=== PATIENT | female | born 1945 | race Caucasian/White ===

== ENCOUNTER → 2019-11-10 10:33 | Outpatient (CLI) | payer MEDICARE, OTHER, SELFPAY ==
--- NOTE | ~2019-11-10 | CT_ITS ---
EXAMINATION: CT chest abdomen pelvis w con EXAM DATE: 11/10/2019 11:07 INDICATION: Follicular lymphoma. Right upper lobectomy. Left kidney ablation. TECHNIQUE: Spiral CT of the chest, abdomen and pelvis was performed following intravenous injection o f 100 mL Omnipaque 350. Axial, coronal and sagittal images were reviewed. Coronal maximum intensity pixel images of chest reviewed. The dose-length product (DLP) for this examination was 722.16 mGy-c m. The exposure was tailored according to patient size (auto mA exposure control), and iterative rec onstruction (ASIR) was used as additional dose reduction technique. There is no prior study for jordon meneses. FINDINGS: CHEST: Right upper lobectomy. No central pulmonary emboli. There are no pleural or pericardial effus ions. Tracheobronchial tree is patent. There is no mediastinal, hilar or axillary lymphadenopathy . There is no pneumothorax. Heart normal in size. There is mild coronary arterial calcification , arterial sclerosis. ABDOMEN PELVIS: The liver, spleen, adrenal glands and pancreas are unremarkable. There are gallstone s within an otherwise unremarkable gallbladder. No evidence of obstructive biliary disease. Portal and splenic veins are patent. Kidneys enhance symmetrically. There is no hydronephrosis. Scarring p osterior cortex of the left kidney. The uterus is not identified and has likely been surgically rese cted. The bladder is unremarkable. There is no retroperitoneal or pelvic lymphadenopathy. There i s mild scattered arteriosclerotic disease. The appendix is not positively visualized. There is no pericecal inflammatory change to suggest appe ndicitis. There is small sliding gastroesophageal hiatal hernia. There is moderate amount of colon ic stool. No free intraperitoneal gas. There are no osteoblastic or osteolytic lesions identified . IMPRESSION: 1. No chest abdomen or pelvis lymphadenopathy. 2. Surgical changes. 3. Small hiatal hernia. 4. Cholelithiasis. Reviewed, dictated and finalized at location B.
[2019-11-10 10:56] LABS: Estimated Glomerular Filt Rate > 60
== END ==
PROVIDERS: Visit Provider Internal Medicine Medical Oncology
DX: C82.18 Follicular lymphoma grade II, lymph nodes of multiple sites (principal); K44.9 Diaphragmatic hernia without obstruction or gangrene; K80.20 Calculus of gallbladder without cholecystitis without obstruction
CPT/HCPCS: 36415; 71260; 74177; Q9967

== ENCOUNTER 2020-03-11 01:09 | Outpatient (CLI) | payer MEDICARE, OTHER, SELFPAY ==
[2020-03-11 18:41] LABS: SARS-CoV-2 RNA PCR Negative
== END 2020-03-11 01:10 | disposition home or self-care (01) ==
LOC: ANHCOVIDDT 01:10
PROVIDERS: PCP Family Medicine; Visit Provider Internal Medicine Gastroenterology
DX: Z01.812 Encounter for preprocedural laboratory examination (principal); Z11.59 Encounter for screening for other viral diseases
CPT/HCPCS: 87635; C9803; U0003

== ENCOUNTER 2020-03-13 03:03 | Day surgery (SDC) | payer MEDICARE, OTHER, SELFPAY ==
[2020-03-06 14:57] VITALS: BMI 25.4
--- NOTE | 2020-03-13 09:58 | WPDGICN ---
Assessment and Plan Assessment and plan (1) Abdominal pain: Code(s): R10.9 - Unspecified abdominal pain Status: Acute Assessment and Plan: Patient with ongoing abdominal pain. Etiology is unclear. Patient is quite concerned because of her history of lymphoma. differential diagnosis is quite broad but also includes irritable bowel syndrome. Plan is for high-fiber diet. Colonoscopy will be performed to evaluate more thoroughly. (2) Cholelithiasis: Code(s): K80.20 - Calculus of gallbladder without cholecystitis without obstruction Status: Acute Assessment and Plan: Gallstones identified by CT scan do not appear to be etiology of her ongoing pain. Plan is to monitor conservatively at this time. If pain persists consider surgical evaluation. (3) Non-Hodgkin lymphoma in remission: Code(s): C85.90 - Non-Hodgkin lymphoma, unspecified, unspecified site Status: Acute Assessment and Plan: patient continues to be followed by Dr. Garza, of Oncology , appreciate his ongoing guidance. GI Consult Note Consult date/time: 03/13/20 09:58 HPI: Shikha Godinez is a 74 year old female seen in evaluation at the request of Dr Martin and Dr Garza. Patient reports ongoing abdominal discomfort. She notices discomfort diffusely that is improved when she lies down but worsens when she walks around. She does occasionally notice left lower quadrant discomfort that is cramping. The symptoms have been present for the last several months. She denies any bleeding. She denies any fever. Her weight appetite are all normal. She does have a past medical history of stage IV follicular lymphoma. This was located throughout her abdomen. In the lung for which she had surgery and in her left axilla. Patient had a CT scan of the abdomen in September under the direction of Dr. kamlesh crook with no evidence of active disease. She does is known to have asymptomatic gallstones. Review of Systems Review of Systems: All systems reviewed & are unremarkable except as noted in HPI and below PMFSH Past Medical History Medical History Arthritis due to other bacteria, left ankle and foot Benign essential HTN Bunion of left foot Cancer NON-HODGKINS, RT LUNG CA Cholelithiasis Encounter for orthopedic follow-up care (08/03/19) FHx: CORINE-BSO (total abdominal hysterectomy and bilateral salpingo-oophorectomy) Foot osteomyelitis, left HH (hiatus hernia) Hypercholesterolemia Mixed hyperlipidemia Non-Hodgkin lymphoma in remission Osteoporosis Osteoporosis without current pathological fracture Renal cyst Renal mass, left Vitamin D deficiency, unspecified Surgical History Surgical History H/O: hemorrhoidectomy History of appendectomy Hx of LASIK S/P pneumonectomy RUL resection S/P CORINE-BSO (total abdominal hysterectomy and bilateral salpingo-oophorectomy) Family History Family History Mother Family history of malignant neoplasm Father Patient's father is Acute myocardial infarction Sibling Acute myocardial infarction Other Cerebrovascular accident Diabetes mellitus Family history of allergic disorder Family history of arthritis Family history of cardiovascular disease Family history of hearing loss Family history of obesity Family history of osteoporosis Hypertension Social History Social History (Updated 10/20/19 @ 13:29 by Deidra Murrell) Social History: Smoking status: Never smoker Second hand tobacco smoke exposure: No Alcohol intake: never Substance use: never Substance use type: does not use Gender identity (if verbalized by the patient): Female Sexual Orientation (if Verbalized by the Patient): Straight or Heterosexual Meds Home Medications and A
[2020-03-13] MEDS: LACTATED RINGERS 1,000 ML 150 ML IV CONT (10:04)
[2020-03-13 10:05] VITALS: BP 184/88; PULSE 98; RESP 18; TEMP 36.6; O2SAT 100
--- NOTE | 2020-03-13 10:13 | WPDANESEPPF ---
Anes - Initial Pre Proc Eval Procedure: Operation Date: 03/13/20 10:30 Proposed Procedures p Screening Colonoscopy - Kosta Morales MD Date/Time: 03/13/20 10:13 Surgeon: Kosta Morales MD Pre Op Diagnosis: Neoplasm Screening Patient Data Age: 74 Gender: F Height: 5 ft 3 in Weight: 65 kg Last Vital Signs Temp 98 F 03/13/20 10:05 Pulse 98 03/13/20 10:05 Resp 18 03/13/20 10:05 BP 184/88 H 03/13/20 10:05 Pulse Ox 100 03/13/20 10:05 Allergies Allergy/AdvReac Type Severity Reaction Status Date / Time povidone-iodine Allergy Mild RASH Verified 03/13/20 09:54 grass pollen Allergy Unknown Unknown Verified 03/13/20 09:54 povidone Allergy Unknown Rash Verified 03/13/20 09:54 soap Allergy Unknown Rash Verified 03/13/20 09:54 Home Medications Medication Instructions Recorded Confirmed Type Adult Probiotic 3,000 mmu cells PO DAILY 07/20/19 03/06/20 History Adults Multivitamin 1 tablet PO DAILY 07/20/19 03/06/20 History alendronate [Fosamax] 70 mg PO WEEKLY 07/20/19 03/06/20 History ascorbic acid (vitamin C) [Vitamin 500 mg PO DAILY 07/20/19 03/06/20 History C] lutein 20 mg PO DAILY 07/20/19 03/06/20 History magnesium 250 mg PO DAILY 07/20/19 03/06/20 History multivitamin with minerals 1 tablet PO DAILY 07/20/19 03/13/20 History [Hair,Skin and Nails] pantoprazole [Protonix] 20 mg PO HS 07/20/19 03/06/20 History polyethylene glycol 3350 [Miralax] 17 g PO DAILY 07/20/19 03/06/20 History echinacea purpurea root 80 mg 80 mg PO DAILY 10/20/19 03/06/20 History capsule hoodia gordonii extract 250 mg 250 mg PO DAILY 10/20/19 03/13/20 History capsule inulin 1.5 gram chewable tablet 1.5 gm PO 10/20/19 10/21/19 History ketoconazole 2 % shampoo 1 applic TOPICAL 2XW 10/20/19 03/13/20 History olopatadine 0.1 % eye drops 1 drop EACH EYE BID 10/20/19 03/13/20 History pimecrolimus 1 % topical cream 1 applic TOPICAL BID 10/20/19 03/06/20 History tobramycin-dexamethasone 0.3 %-0.1 1 applic EACH EYE Q8H 10/20/19 03/06/20 History % eye ointment triamcinolone acetonide 0.1 % 1 applic TOPICAL BID 10/20/19 03/13/20 History topical cream atorvastatin 40 mg tablet 40 mg PO DAILY #90 tablet 12/25/19 03/06/20 Rx estradiol [Estrace] 0.01 % VAGINAL DAILY 03/06/20 03/06/20 History Patient hx anesthesia problems: none Family hx anesthesia problems: none PMFSH Past Medical History Medical History Arthritis due to other bacteria, left ankle and foot Benign essential HTN Bunion of left foot Cancer NON-HODGKINS, RT LUNG CA Cholelithiasis Encounter for orthopedic follow-up care (08/03/19) FHx: CORINE-BSO (total abdominal hysterectomy and bilateral salpingo-oophorectomy) Foot osteomyelitis, left HH (hiatus hernia) Hypercholesterolemia Mixed hyperlipidemia Non-Hodgkin lymphoma in remission Osteoporosis Osteoporosis without current pathological fracture Renal cyst Renal mass, left Vitamin D deficiency, unspecified Surgical History Surgical History H/O: hemorrhoidectomy History of appendectomy Hx of LASIK S/P pneumonectomy RUL resection S/P CORINE-BSO (total abdominal hysterectomy and bilateral salpingo-oophorectomy) Family History Family History Mother Family history of malignant neoplasm Father Patient's father is Acute myocardial infarction Sibling Acute myocardial infarction Other Cerebrovascular accident Diabetes mellitus Family history of allergic disorder Family history of arthritis Family history of cardiovascular disease Family history of hearing loss Family history of obesity Family history of osteoporosis Hypertension Social History Social History (Updated 10/20/19 @ 13:29 by Deidra Murrell) Social History: Smoking status: Never smoker Second hand tobacco smoke expos
[2020-03-13 11:09] VITALS: BP 120/55; PULSE 81; RESP 25; O2SAT 100
[2020-03-13 11:19] VITALS: BP 141/64; PULSE 79; RESP 25; O2SAT 100
[2020-03-13 11:29] VITALS: BP 154/76; PULSE 75; RESP 19; O2SAT 100
== END 2020-03-13 11:46 | disposition home or self-care (01) ==
PROVIDERS: PCP Family Medicine; Visit Provider Internal Medicine Gastroenterology
PROC: 0DJD8ZZ Inspection of Lower Intestinal Tract, Via Natural or Artificial Opening Endoscopic (ICD-10-PCS; CPT 45378; principal; 2020-03-13 10:30)
DX: R10.84 Generalized abdominal pain (principal); R10.32 Left lower quadrant pain; K64.8 Other hemorrhoids; K80.20 Calculus of gallbladder without cholecystitis without obstruction; I10 Essential (primary) hypertension; E78.2 Mixed hyperlipidemia; M81.0 Age-related osteoporosis without current pathological fracture; E55.9 Vitamin D deficiency, unspecified; Z85.72 Personal history of non-Hodgkin lymphomas
CPT/HCPCS: 45380; 88305; 88342; J2704; J7120

== ENCOUNTER → 2020-06-08 10:50 | Outpatient (CLI) | payer MEDICARE, OTHER, SELFPAY ==
--- NOTE | ~2020-06-08 | MR_ITS ---
EXAMINATION: MR brain/brain stem wo con DATE: 06/08/2020 11:59 INDICATION: Visual hallucinations. TECHNIQUE: Magnetic resonance imaging (MRI) of the brain and brainstem was performed without intraven ous contrast. Sequences included sagittal and axial T1-weighted SE, axial diffusion-weighted FS SE, a xial T2*-weighted GRE, axial T2-weighted FLAIR Propeller, and axial T2-weighted Propeller. Apparent d iffusion coefficient (ADC) maps were created. COMPARISON: CT dated 11/28/2011. FINDINGS: Brain parenchymal volume is normal for age. No acute intracranial hemorrhage, infarction, m ass or mass effect. There are scattered mild periventricular and subcortical white matter changes, mo st likely related to small vessel ischemic disease (microangiopathy). Structures of the posterior fos sa are unremarkable. Paranasal sinuses within normal limits. Midline sagittal images demonstrate a no rmal corpus callosum and craniovertebral junction. No abnormality of the sella turcica. No ventriculo megaly or midline shift. IMPRESSION: 1. No acute intracranial abnormality. 2: Chronic age-related findings. Reviewed, dictated and finalized at location A.
== END ==
PROVIDERS: PCP Nurse Practitioner Family; Visit Provider Nurse Practitioner Family
DX: R44.1 Visual hallucinations (principal); F48.2 Pseudobulbar affect
CPT/HCPCS: 70551

== ENCOUNTER 2020-06-08 12:21 | Outpatient (CLI) | payer MEDICARE, OTHER, SELFPAY ==
--- NOTE | ~2020-06-08 | XR_ITS ---
XR_[id number]_[id number] 06/08/2020 12:42 Indication: Neck pain Procedure: 3 views cervical spine Comparison: No prior studies for comparison. Findings: There is mild disc narrowing and endplate degenerative change at C6-7 and C7-T1. There are mild uncinate degenerative changes at C6-7. Lung apices are normal. Normal cervical alignment. No fra cture or traumatic malalignment. No prevertebral soft tissue swelling. Odontoid process within normal limits. Impression: 1: No acute abnormality of the cervical spine. Reviewed, dictated and finalized at location A. Impression: 1: No acute abnormality of the cervical spine.
== END 2020-06-08 12:22 | disposition home or self-care (01) ==
LOC: ANHIMG 12:26
PROVIDERS: PCP Nurse Practitioner Family; Visit Provider Nurse Practitioner Family
DX: M54.9 Dorsalgia, unspecified (principal)
CPT/HCPCS: 72040

== ENCOUNTER → 2020-07-29 09:27 | Outpatient (CLI) | payer MEDICARE, OTHER, SELFPAY ==
--- NOTE | ~2020-07-29 | CT_ITS ---
EXAMINATION: CT chest abdomen pelvis w con EXAM DATE: 07/29/2020 10:13 INDICATION: Follicular lymphoma grade II of lymph nodes of multiple site. Right upper lobectomy, left kidney ablation. TECHNIQUE: Spiral CT of the chest, abdomen and pelvis was performed following intravenous injection o f 100 mL Omnipaque 350. Axial, coronal and sagittal images were reviewed. Coronal maximum intensity pixel images of chest reviewed. The dose-length product (DLP) for this examination was 812.92 mGy-c m. The exposure was tailored according to patient size (auto mA exposure control), and iterative rec onstruction (ASIR) was used as additional dose reduction technique. Comparison is made to prior exami nation from 11/10/2019. FINDINGS: CHEST: Right upper lobectomy. Small region right lower lobe anterior segmental atelectasis/scarring. No central pulmonary emboli. There are no pleural or pericardial effusions. Tracheobronchial tree is patent. There is no mediastinal, hilar or axillary lymphadenopathy. There is no pneumothorax. Heart normal in size. There is mild coronary arterial calcification, arterial sclerosis. ABDOMEN PELVIS: The liver, spleen, adrenal glands and pancreas are unremarkable. There are gallstone s within an otherwise unremarkable gallbladder. No evidence of obstructive biliary disease. Portal and splenic veins are patent. Kidneys enhance symmetrically. There is no hydronephrosis. Scarring p osterior cortex of the left kidney. The uterus is not identified and has likely been surgically rese cted. The bladder is unremarkable. There is no retroperitoneal or pelvic lymphadenopathy. There i s mild scattered arteriosclerotic disease. The appendix is not positively visualized. There is no pericecal inflammatory change to suggest appe ndicitis. There is small sliding gastroesophageal hiatal hernia. There is moderate amount of colon ic stool. No free intraperitoneal gas. There are no osteoblastic or osteolytic lesions identified . IMPRESSION: 1. No chest abdomen or pelvis lymphadenopathy. 2. Surgical changes. 3. Small hiatal hernia. 4. Cholelithiasis. Reviewed, dictated and finalized at location A. ROP SYSTEMS TECHNICIAN
[2020-07-29 09:51] LABS: Estimated Glomerular Filt Rate > 60
== END ==
PROVIDERS: PCP Nurse Practitioner Family; Visit Provider Internal Medicine Medical Oncology
DX: C82.18 Follicular lymphoma grade II, lymph nodes of multiple sites (principal); K44.9 Diaphragmatic hernia without obstruction or gangrene; K80.20 Calculus of gallbladder without cholecystitis without obstruction
CPT/HCPCS: 71260; 74177; Q9967

== ENCOUNTER 2020-07-31 12:55 | Outpatient (CLI) | payer MEDICARE, OTHER, SELFPAY ==
--- NOTE | ~2020-07-31 | MM_ITS ---
EXAMINATION: MM screening isamar BI w priscila HISTORY: Screening mammogram TECHNIQUE: Craniocaudal and mediolateral oblique 3-D tomosynthesis images were obtained and synthetic 2-D images were generated. CAD analysis was submitted and interpreted. COMPARISON: 07/21/2019, 04/18/2018, 03/11/2017 bilateral digital screening mammogram examinations BREAST PARENCHYMAL COMPOSITION: There are scattered areas of fibroglandular density. FINDINGS: There is a new asymmetric approximately 7 mm opacity at the posterior margin of the far med ial right breast on craniocaudal view, apparently in the mid to lower medial breast (craniocaudal sandrita osynthesis image 26/58). Diagnostic right mammogram and right breast ultrasound recommended for furth er evaluation. Otherwise there is no evidence of suspicious mass, calcification, or architectural distortion to sugg est malignancy in either breast. There has been no other suspicious interval change. IMPRESSION: 1. New approximately some linear opacity at posterior mid to lower medial right breast. 2. Diagnostic right mammogram and right breast ultrasound examination are recommended. BI-RADS Category 0: Incomplete: Needs additional imaging evaluation. Reviewed, dictated and finalized at location A. LEY CAR MECHANIC IMPRESSION: 1. New approximately some linear opacity at posterior mid to lower medial right breast. 2. Diagnostic right mammogram and right breast ultrasound examination are recom mended. BI-RADS Category 0: Incomplete: Needs additional imaging evaluation.
== END 2020-07-31 12:56 | disposition home or self-care (01) ==
LOC: ANHIMG 12:57
PROVIDERS: PCP Nurse Practitioner Family; Visit Provider Obstetrics & Gynecology
DX: Z12.31 Encounter for screening mammogram for malignant neoplasm of breast (principal); R92.8 Other abnormal and inconclusive findings on diagnostic imaging of breast
CPT/HCPCS: 77063; 77067

== ENCOUNTER → 2020-08-20 08:42 | Outpatient (CLI) | payer MEDICARE, OTHER, SELFPAY ==
--- NOTE | ~2020-08-20 | MMUS_ITS ---
EXAMINATION: MM diagnostic mammo unilat RT, US breast RT limited HISTORY: TECHNIQUE: Additional 3-D tomosynthesis images of were performed and synthetic 2-D images were genera young. CAD analysis was submitted and interpreted. High resolution breast ultrasound was performed. COMPARISON: None FINDINGS: MAMMOGRAPHIC FINDINGS: An irregular approximately 7 x 10 mm mass density is present in the posterior medial mid right breast . ULTRASOUND: At 3:00 9.5 cm from the nipple there is an approximately 9 x 6 x 9 mm heterogeneous solid lesion with internal vascularity. This is suspicious for malignancy. Ultrasound-guided biopsy is recommended. IMPRESSION: 1. Suspicious 9 mm mass with internal vascularity at 3:00 location 9.5 cm from nipple 2. Ultrasound-guided biopsy is recommended. BI-RADS category 4, suspicious findings. Dr. Bailey left a voicemail at [phone] with the findings and the recommendation for ultrasound-carina ded biopsy Reviewed, dictated and finalized at location A. BILITY ADVOCATE IMPRESSION: 1. Suspicious 9 mm mass with internal vascularity at 3:00 location 9.5 cm from nipple 2. Ultrasound-guided biopsy is recommended. BI-RADS category 4, suspicious findings. Dr. Bailey left a voicemail at [phone] with the findings and the recommendat ion for ultrasound-guided biopsy IMPRESSION: 1. Suspicious 9 mm mass with internal vascularity at 3:00 location 9.5 cm from nipple 2. Ultrasound-guided biopsy is recommended. BI-RADS category 4, suspicious findings. Dr. Bailey left a voicemail at [phone] with the findings and the recommendat ion for ultrasound-guided biopsy
== END ==
PROVIDERS: PCP Nurse Practitioner Family; Visit Provider Obstetrics & Gynecology
DX: R92.8 Other abnormal and inconclusive findings on diagnostic imaging of breast (principal)
CPT/HCPCS: 76642; 77065

== ENCOUNTER 2020-09-05 10:29 | Outpatient (CLI) | payer MEDICARE, OTHER, SELFPAY ==
--- NOTE | ~2020-09-05 | MMUS_ITS ---
EXAMINATION: US breast biopsy RT w image, MM post biopsy invasive RT DATE: 09/05/2020 11:53 (accession [id number]), 09/05/2020 12:04 (accession [id number]) INDICATION: Indeterminate right breast mass. Ultrasound-guided core biopsy is requested to evaluate for malignancy. TECHNIQUE AND FINDINGS: The risks and potential benefits of the procedure were discussed with the patient including bleeding and infection. A time out was performed. The skin of the right breast was prepared and draped in usua l sterile fashion. 1% lidocaine was used for superficial anesthesia. 1% lidocaine with epinephrine wa s used for deep anesthesia. A vacuum-assisted biopsy gun needle was advanced through to the outer edge of the region of interest from an inferior approach utilizing sonographic guidance. A total of three tissue core samples were o btained through the lesion. A tissue marker clip was then placed at the biopsy site. Hemostasis was a chieved. A sterile bandage was applied. The patient tolerated procedure well and there was no evidence of immediate complication. The patient was given verbal instructions to return to the Emergency Department in the event of severe breast pa in or rapid breast enlargement. A three view right breast mammogram was obtained to document tissue m arker clip placement. IMPRESSION: 1. Successful ultrasound-guided vacuum-assisted biopsy of right breast mass with tissue marker placem ent. Reviewed, dictated and finalized at location A. IFIER IMPRESSION: 1. Successful ultrasound-guided vacuum-assisted biopsy of right breast mass wit h tissue marker placement.
== END 2020-09-05 10:30 | disposition home or self-care (01) ==
PROVIDERS: PCP Nurse Practitioner Family; Visit Provider Obstetrics & Gynecology
DX: R92.8 Other abnormal and inconclusive findings on diagnostic imaging of breast (principal); C82.04 Follicular lymphoma grade I, lymph nodes of axilla and upper limb
CPT/HCPCS: 19083; 88305; 88342; A4648

== ENCOUNTER → 2020-12-16 10:04 | Outpatient (CLI) | payer MEDICARE, OTHER, SELFPAY ==
--- NOTE | ~2020-12-16 | US_ITS ---
EXAMINATION: US thyroid DATE: 12/16/2020 10:23 INDICATION: Thyroid nodule TECHNIQUE: Multiple ultrasound images of the thyroid were obtained. COMPARISON: None. FINDINGS: The right thyroid lobe measures 4.5 x 1.5 x 1.6 cm. The left thyroid lobe measures 4.2 x 1.1 x 1.6 c m. There are multiple scattered bilateral small thyroid nodules. Slight increase in size of the larg est now 1.3 cm nodule in the inferior right thyroid which remains wider than tall heterogeneous predo minantly solid isoechoic to hypoechoic with lobular margins and without echogenic foci (TI-RADS 4, mo derately suspicious , FNA if >=1.5 cm, annual followup is >=1 cm). Also without significant interval change at the next 2 smaller TI RADS 4 nodules as previously detailed. The inferior left thyroid whic h currently measure 10 mm and 8 mm in maximal dimensions. IMPRESSION: 1. No significant interval change in a multinodular goiter. Recommend one-year follow-up ultrasound. Reviewed, dictated and finalized at location A.
== END ==
PROVIDERS: Visit Provider Internal Medicine Medical Oncology
DX: E04.2 Nontoxic multinodular goiter (principal)
CPT/HCPCS: 76536

== ENCOUNTER → 2021-06-13 12:18 | Outpatient (CLI) | payer MEDICARE, OTHER, SELFPAY ==
--- NOTE | ~2021-06-13 | CT_ITS ---
EXAMINATION: CT chest abdomen pelvis w con DATE: 06/13/2021 13:57 INDICATION: Follicular lymphoma grade 2 of lymph nodes at multiple sites. TECHNIQUE: Computed tomography (CT) of the chest, abdomen, and pelvis was performed with 100 mL Omnip aque 350 intravenous contrast. Automated exposure control and iterative reconstruction technique were employed. The dose-length product was 696.77 mGy-cm. COMPARISON: CT chest, abdomen, and pelvis 07/29/2020 FINDINGS: CHEST CT: There are changes of wedge resection in right lung upper lobe. There are chronic peripheral airspace opacities in the anterobasal segment right lower lobe, likely scarring. No pleural effusion. The hear t size is normal. There are coronary artery calcifications. No pericardial effusion. There are nodule s in the thyroid measuring up to 7 mm, likely not clinically significant. There are no pathologically enlarged lymph nodes. There is a small sliding hiatal hernia. There is moderate thoracic spondylosis . ABDOMEN/PELVIS CT: There is a 5 mm cyst in the liver. There are gallstones in the gallbladder, which is normal in size. The spleen, pancreas, and adrenal glands are normal. There is cortical thinning of the kidneys. There is a 2 mm stone in left kidney. Stool distends the rectum. There is a large volume of stool in the c olon. The appendix is not visualized. There are no pathologically enlarged lymph nodes. There is no f ree intraperitoneal fluid. There is severe lower lumbar spondylosis. IMPRESSION: 1. No evidence of lymphoma. Reviewed, dictated and finalized at location A. IMPRESSION: 1. No evidence of lymphoma.
[2021-06-13 13:35] LABS: Estimated Glomerular Filt Rate > 60
== END ==
PROVIDERS: PCP Nurse Practitioner Family; Visit Provider Internal Medicine Medical Oncology
DX: C82.18 Follicular lymphoma grade II, lymph nodes of multiple sites (principal)
CPT/HCPCS: 71260; 74177; Q9967

== ENCOUNTER → 2021-09-08 11:05 | Outpatient (CLI) | payer MEDICARE, OTHER, SELFPAY ==
--- NOTE | ~2021-09-08 | CT_ITS ---
EXAMINATION: CT chest abdomen pelvis w con DATE: 09/08/2021 11:42 INDICATION: Follicular lymphoma TECHNIQUE: Transaxial computed tomographic images of the chest, abdomen, and pelvis were obtained aft er the administration of 100 cc of Omnipaque 350 intravenous contrast. The dose-length product (DLP) was 577.54 mGy-cm. Automated exposure control and iterative reconstruction technique were employed. COMPARISON: 06/13/2021 FINDINGS: CHEST CT: Again noted are changes of partial right upper lobectomy. The lungs are free of acute opacities. Stull Hewer davida, subpleural airspace opacities are again noted in the right lower lobe without significant change . There is moderate thoracic spondylosis. There is no pleural effusion or pneumothorax. No pathologic ally enlarged thoracic lymph nodes are identified. The heart size is normal. Calcified coronary arter y atherosclerosis is noted. ABDOMEN/PELVIS CT: There is a small sliding hiatal hernia. Cysts of the liver measure up to 5 mm in the right hepatic lo be. The spleen, pancreas, and adrenal glands are normal. Stones are present in the nondistended gallb ladder. There is scarring in the upper pole of the left kidney. A 2 mm nonobstructing stone is noted in the left kidney upper pole. The right kidney is unremarkable. No pathologically enlarged abdominal or pelvic lymph nodes are identified. There is no free intraperitoneal gas or evidence of bowel obst ruction. A large volume of colonic stool is present. Severe lower lumbar spondylosis is noted. IMPRESSION: 1. No pathologically enlarged lymph nodes in the chest, abdomen, or pelvis. Reviewed, dictated and finalized at location F. SIGN WRITER
[2021-09-08 11:33] LABS: Estimated Glomerular Filt Rate 54
== END ==
PROVIDERS: Visit Provider Internal Medicine Medical Oncology
DX: C82.18 Follicular lymphoma grade II, lymph nodes of multiple sites (principal)
CPT/HCPCS: 71260; 74177; Q9967

== ENCOUNTER → 2021-11-13 13:29 | Outpatient (CLI) | payer MEDICARE, OTHER, SELFPAY ==
--- NOTE | ~2021-11-13 | MR_ITS ---
EXAMINATION: MR brain/brain stem wo con DATE: 11/13/2021 14:10 INDICATION: Near syncope. TECHNIQUE: Magnetic resonance imaging (MRI) of the brain and brainstem was performed without intraven ous contrast. Sequences included sagittal and axial T1-weighted FSE, axial diffusion-weighted FS EPI, axial T2*-weighted GRE, axial T2-weighted FLAIR Propeller, and axial T2-weighted Propeller. Apparent diffusion coefficient (ADC) maps were created. COMPARISON: Brain MRI 06/08/2020 FINDINGS: There are scattered areas of nonspecific increased T2-weighted signal intensity in the cere bral white matter, which is within normal limits for the patient's age. There is no intracranial hemo rrhage, acute infarction, or abnormal intracranial mass lesion. The ventricles are normal in size. Th ere is mild mucosal thickening in the ethmoid sinuses. There are likely changes of ocular lens replac ement surgeries. The mastoid air cells are normal. IMPRESSION: 1. Normal aging brain. Reviewed, dictated and finalized at location A. IMPRESSION: 1. Normal aging brain.
== END ==
PROVIDERS: PCP Nurse Practitioner Family; Visit Provider Nurse Practitioner Family
DX: R55 Syncope and collapse (principal)
CPT/HCPCS: 70551

== ENCOUNTER → 2021-12-15 12:51 | Outpatient (CLI) | payer MEDICARE, OTHER, SELFPAY ==
--- NOTE | ~2021-12-15 | DEXA_ITS ---
Bone Density Report Name: SAIRA VERA Age: 76 Sex: Female Ethnicity: White Date of : 1945 Indication: monitoring treatment; height loss; prior fracture; hysterectomy; postmenopausal Referring Provider: MARLENI GUO Study: Bone densitometry was performed. Exam Date: December 15, 2021 Accession number: [id number] Bone Density: Region BMD T-score Z-score Classification AP Spine (L1-L4) 0.941 -1.0 1.4 Normal Femoral Neck (Left) 0.687 -1.5 0.6 Osteopenia Total Hip (Left) 0.899 -0.4 1.4 Normal Femoral Neck (Right) 0.646 -1.8 0.2 Osteopenia Total Hip (Right) 0.828 -0.9 0.8 Normal Total Hip Mean 0.864 -0.7 1.1 Normal World Health Organization criteria for BMD impression classify patients as: Normal (T-score at or above -1.0), Osteopenia (T-score between -1.0 and -2.5), or Osteoporosis (T-score at or below -2.5). 10-year Fracture Risk: FRAX not reported because: Treated for osteoporosis Previous Exams: Region Exam Age BMD T-score BMD Change BMD Change Date g/cm2 vs Baseline vs Previous AP Spine(L1-L4) 12/15/2021 76 0.941 -1.0 0.010 -0.021 07/21/2019 73 0.962 -0.8 0.031* 0.029* 03/11/2017 71 0.932 -1.0 0.002 0.002 03/04/2015 69 0.930 -1.1 Total Hip(Left) 12/15/2021 76 0.899 -0.4 -0.032* -0.019 07/21/2019 73 0.918 -0.2 -0.013 -0.001 03/11/2017 71 0.919 -0.2 -0.012 -0.012 03/04/2015 69 0.931 -0.1 Total Hip(Right) 12/15/2021 76 0.828 -0.9 -0.039* -0.050* 07/21/2019 73 0.878 -0.5 0.011 0.013 03/11/2017 71 0.865 -0.6 -0.002 -0.002 03/04/2015 69 0.867 -0.6 *Denotes significance at 95% confidence level, LSC for AP Spine = 0.022 g/cm2, LSC for Total Hip = 0.027 g/cm2 Clinical Information Provided by Patient: Has had a low trauma fracture Is being treated for osteoporosis Has used the following medications: Fosamax (i.e. alendronate), Vitamin D, Calcium, MULTIVITAMIN Has the following medical conditions: Hysterectomy, CANCER in 2007, 2016, 2020 Patient maximum height was 64.0 Menopause Age: 34 No regular weight bearing exercise Does not regularly consume dairy products Drinks caffeinated beverages Onset of menses at age 13 Number of children 1 Impression: The patient has low bone mass, based on the Right Femoral Neck T-score. The
--- NOTE | ~2021-12-15 | MM_ITS ---
EXAMINATION: MM screening [facility] w priscila HISTORY: Screening mammogram TECHNIQUE: Craniocaudal and mediolateral oblique 3-D tomosynthesis images were obtained and synthetic 2-D images were generated. CAD analysis was submitted and interpreted. COMPARISON: 09/05/2020 right breast ultrasound biopsy 08/20/2020 diagnostic right mammogram and limited right breast ultrasound 07/31/2020, 07/21/2019 bilateral screening mammogram examinations BREAST PARENCHYMAL COMPOSITION: There are scattered areas of fibroglandular density. FINDINGS: There is no evidence of suspicious mass, calcification, or architectural distortion to sugg est malignancy in either breast. There has been no suspicious interval change. IMPRESSION: 1. No mammographic evidence of malignancy. 2. Recommend routine screening mammography in one year. BI-RADS Category 1: Negative Reviewed, dictated and finalized at location A.
== END ==
PROVIDERS: Visit Provider Student in an Organized Health Care Education/Training Program
DX: Z12.31 Encounter for screening mammogram for malignant neoplasm of breast (principal); Z78.0 Asymptomatic menopausal state; M85.89 Other specified disorders of bone density and structure, multiple sites
CPT/HCPCS: 77063; 77067; 77080

== ENCOUNTER → 2021-12-17 12:39 | Outpatient (CLI) | payer MEDICARE, OTHER, SELFPAY ==
--- NOTE | ~2021-12-17 | US_ITS ---
EXAMINATION: US thyroid DATE: 12/17/2021 13:05 INDICATION: Nontoxic single thyroid nodule. TECHNIQUE: Multiple ultrasound images of the thyroid were obtained. COMPARISON: Ultrasound 12/16/2020, 06/07/2019, 02/12/2018, 02/15/2017, 09/20/2015, 07/23/2014 FINDINGS: The right thyroid lobe measures 5.1 x 1.8 x 1.6 cm. The left thyroid lobe measures 4.9 x 1.2 x 1.2 c m. In the right thyroid lobe, there is a 1.8 cm solid, hypoechoic, [id number] nodule with lobula young margin without echogenic foci (TI-RADS TR4). In the right thyroid lobe, there is a 10 mm predomin antly solid, hypoechoic, [id number]-[id number] nodule with ill-defined margin and punctate echogenic foci ( TR5). There are multiple subcentimeter nodules in the thyroid. IMPRESSION: 1. Worsened pulmonary nodules. Ultrasound-guided fine-needle aspiration of 2 right-sided thyroid nodu les is recommended. Reviewed, dictated and finalized at location B. IMPRESSION: 1. Worsened pulmonary nodules. Ultrasound-guided fine-needle aspiration of 2 ri ght-sided thyroid nodules is recommended.
== END ==
PROVIDERS: Visit Provider Otolaryngology
DX: E04.1 Nontoxic single thyroid nodule (principal); R91.8 Other nonspecific abnormal finding of lung field
CPT/HCPCS: 76536

== ENCOUNTER 2022-02-20 12:50 | Outpatient (CLI) | payer MEDICARE, OTHER, SELFPAY ==
--- NOTE | ~2022-02-20 | US_ITS ---
EXAMINATION: 1. US FNA additional 2. US FNA w image guidance DATE: 02/20/2022 14:11 INDICATION: Multinodular goiter. TECHNIQUE: The procedure and its benefits and risks were discussed with the patient. Risks specifically discusse d included bleeding. The patient verbalized understanding of the risks and agreed to proceed. The nec k was prepped and draped in the usual sterile manner. 1% lidocaine was used for local anesthesia. S ix passes were made with a 25G needle into the lesion in mid right thyroid lobe/thyroid isthmus under ultrasound guidance. 6 passes were made with a 25-gauge needle into the lesion in inferior right thyroid lobe under ultras ound guidance. There were no immediate complications. FINDINGS: Grayscale ultrasound images demonstrate needles advanced into a 10 mm nodule in mid right thyroid lob e/thyroid isthmus for biopsy. Grayscale images demonstrate needles advanced into a 1.8 cm nodule in i nferior right thyroid lobe. IMPRESSION: 1. Ultrasound-guided fine needle aspiration of a nodule in mid right thyroid lobe/thyroid isthmus. 2. Ultrasound-guided fine-needle aspiration of a nodule in inferior right thyroid lobe. Reviewed, dictated and finalized at location A. IMPRESSION: 1. Ultrasound-guided fine needle aspiration of a nodule in mid right thyroid l obe/thyroid isthmus. 2. Ultrasound-guided fine-needle aspiration of a nodule in inferior right thyro id lobe.
== END 2022-02-20 12:51 | disposition home or self-care (01) ==
LOC: ANHIMG 12:56
PROVIDERS: PCP Nurse Practitioner Family; Visit Provider Otolaryngology
DX: E04.1 Nontoxic single thyroid nodule (principal)
CPT/HCPCS: 10005; 10006; 88173; 88305

== ENCOUNTER → 2022-07-20 08:58 | Outpatient (CLI) | payer MEDICARE, OTHER, SELFPAY ==
--- NOTE | ~2022-07-20 | CT_ITS ---
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 TECHNIQUE: Computed tomography (CT) of the neck, chest, abdomen, and pelvis was performed with 100 mL Omnipaque 350 intravenous contrast. Automated exposure control and iterative reconstruction techniqu e were employed. The dose-length product was 1169.26 mGy-cm. COMPARISON: CT chest, abdomen, and pelvis 09/08/2021 FINDINGS: NECK CT: There are likely changes of ocular lens replacement surgeries. There are no pathologically enlarged l ymph nodes. There are nodules in the thyroid measuring up to 6 mm, likely not clinically significant. The paranasal sinuses are clear. The mastoid air cells are normal. There is moderate cervical spondy losis. CHEST CT: There are changes of wedge resection of right lung upper lobe. There is mild atelectasis on the right . There is mild scarring at left lung apex. No pleural effusion. The heart size is normal. There are coronary artery calcifications. No pericardial effusion. There are no pathologically enlarged lymph n odes. There is a small sliding hiatal hernia. There is mild thoracic spondylosis. ABDOMEN/PELVIS CT: There are cysts in the liver measuring up to 8 mm. There are gallstones in the gallbladder, which is normal in size. The spleen, pancreas, and adrenal glands are normal. There is cortical thinning of th e kidneys. There is a large volume of stool in the colon with distention of the rectum. The appendix is not visualized. There are no pathologically enlarged lymph nodes. There is no free intraperitoneal fluid. There is severe lower lumbar spondylosis. IMPRESSION: 1. No evidence of lymphoma. Reviewed, dictated and finalized at location A. TMENT HOTEL MANAGER IMPRESSION: 1. No evidence of lymphoma.
[2022-07-20 09:38] LABS: Estimated Glomerular Filt Rate > 60
== END ==
PROVIDERS: PCP Internal Medicine; Visit Provider Internal Medicine Medical Oncology
DX: C82.18 Follicular lymphoma grade II, lymph nodes of multiple sites (principal); R59.9 Enlarged lymph nodes, unspecified
CPT/HCPCS: 70491; 71260; 74177; Q9967

== ENCOUNTER → 2022-10-10 10:21 | Outpatient (CLI) | payer MEDICARE, OTHER, SELFPAY ==
--- NOTE | ~2022-10-10 | US_ITS ---
EXAMINATION: US thyroid DATE: 10/10/2022 11:42 INDICATION: Multinodular goiter. TECHNIQUE: Multiple ultrasound images of the thyroid were obtained. COMPARISON: Ultrasound 02/20/2022, 12/17/2021, 12/16/2020, 06/07/2019, 02/12/18 FINDINGS: The right thyroid lobe measures 4.5 x 1.6 x 1.9 cm. The left thyroid lobe measures 4.4 x 1.4 x 1.4 c m. In the right thyroid lobe, there is a 4 mm nodule. In the right thyroid lobe, there is a 9 mm kosta id, hypoechoic, wider than tall nodule with ill-defined margin and punctate echogenic foci (TI-RADS T R5), stable from 02/20/22 when biopsy was benign. In the inferior right thyroid lobe, there is a 18 mm , solid, hypoechoic, wider than tall nodule with lobulated margin and punctate echogenic foci (TI-RAD S TR5), stable from 02/20/2022 when biopsy was benign. In the right thyroid lobe, there is a 5 mm catie d, hypoechoic, wider than tall nodule with smooth margin and punctate echogenic foci (TR5). In the le ft thyroid lobe, there is an 8 mm solid, hypoechoic, wider than tall nodule with ill-defined margin a nd punctate echogenic foci (TR5). In the left thyroid lobe, there is a 9 mm solid, hypoechoic, wider than tall nodule with smooth margin and punctate echogenic foci (TR5). IMPRESSION: 1. Stable multinodular goiter status post biopsy of 2 benign nodules on 02/20/2022. Reviewed, dictated and finalized at location A. HOUSE ENGINEER IMPRESSION: 1. Stable multinodular goiter status post biopsy of 2 benign nodules on 02/21/20 22.
== END ==
PROVIDERS: PCP Internal Medicine; Visit Provider Internal Medicine
DX: E04.2 Nontoxic multinodular goiter (principal)
CPT/HCPCS: 76536

== ENCOUNTER → 2023-01-21 13:05 | Outpatient (CLI) | payer MEDICARE, OTHER, SELFPAY ==
--- NOTE | ~2023-01-21 | MM_ITS ---
EXAMINATION: MM screening [facility] BI w priscila HISTORY: Screening mammogram TECHNIQUE: Craniocaudal and mediolateral oblique 3-D tomosynthesis images were obtained and synthetic 2-D images were generated. CAD analysis was submitted and interpreted. COMPARISON: 12/15/2021, 08/20/2020, 07/31/2020, 07/21/2019 BREAST PARENCHYMAL COMPOSITION: There are scattered areas of fibroglandular density. FINDINGS: No suspicious mass, calcification, or architectural distortion are identified in either ivelisse ast to suggest malignancy. There has been no suspicious interval change. IMPRESSION: 1. No mammographic evidence of malignancy. 2. Recommend routine screening mammography in one year. BI-RADS Category 1: Negative Reviewed, dictated and finalized at location A.
== END ==
PROVIDERS: PCP Internal Medicine; Visit Provider Registered Nurse
DX: Z12.31 Encounter for screening mammogram for malignant neoplasm of breast (principal)
CPT/HCPCS: 77063; 77067

== ENCOUNTER → 2023-01-29 09:29 | Outpatient (CLI) | payer MEDICARE, OTHER, SELFPAY ==
--- NOTE | ~2023-01-29 | CT_ITS ---
Clinical Indication: Follicular lymphoma CT Scan of the Chest, Abdomen, and Pelvis with Contrast: Technique: Contiguous sections were acquired throughout the chest, abdomen, and pelvis after intraven ous administration of 100 cc of Omnipaque 350. Dose reduction technique was used on this scan by wilfredo verdugo automated exposure control and iterative reconstruction technique. The dose-length product (DL P) was 719.21 mGy-cm. COMPARISON: 07/20/2022 and 06/13/2021 Findings: There is no evidence of any significant mediastinal, hilar or axillary lymphadenopathy. The mediastin al soft tissues and vascular structures appear normal. There is no evidence of pleural or pericardial effusion. Stable biapical scarring noted. Stable peripheral nodule at the right lung base (axial image 83). Lef t lung is clear. The liver, spleen, pancreas, adrenals and kidneys are within normal limits. Small calcified gallstone s are present. There are atherosclerotic calcifications of the aorta. No lymphadenopathy. No bowel obstruction or bowel wall thickening. There is no evidence to suggest acute appendicitis. Urinary bladder is unremarkable. No adnexal mass seen. No ascites. Impression: No evidence for active malignancy or metastatic disease. No pathologic lymphadenopathy seen. Stable right basilar pulmonary nodule. Reviewed, dictated and finalized at location . Impression: No evidence for active malignancy or metastatic disease. No pathologic lymphade nopathy seen. Stable right basilar pulmonary nodule.
[2023-01-29 10:11] LABS: Estimated Glomerular Filt Rate 54
== END ==
PROVIDERS: PCP Internal Medicine; Visit Provider Internal Medicine Medical Oncology
DX: C82.18 Follicular lymphoma grade II, lymph nodes of multiple sites (principal); R91.1 Solitary pulmonary nodule
CPT/HCPCS: 71260; 74177; Q9967

== ENCOUNTER → 2023-02-23 12:51 | Outpatient (CLI) | payer MEDICARE, OTHER, SELFPAY ==
--- NOTE | ~2023-02-23 | US_ITS ---
Thyroid ultrasound. Clinical History: Multinodular goiter COMPARISON: 10/10/2022 and 12/17/2021 Findings: Real-time sonography of the thyroid gland was performed. The right lobe measures 5.0 x 1.6 x 1.8 cm. The left lobe measures 5.0 x 1.2 x 1.2 cm. The isthmus is 2 mm in AP diameter. Multiple bilateral thyroid nodules are present. Largest left-sided nodule is somewhat spongiform appe arance of the lower pole, measuring 1 cm in diameter. Largest right thyroid lobe nodule is heterogene ously solid the lower pole, measuring 1.7 cm in maximum diameter. Multiple additional smaller thyroid nodules are present bilaterally. Impression: Multiple bilateral thyroid nodules, essentially stable from prior exams. Findings are consistent with multinodular goiter. Reviewed, dictated and finalized at [facility]. Impression: Multiple bilateral thyroid nodules, essentially stable from prior exams. Findin gs are consistent with multinodular goiter.
== END ==
PROVIDERS: PCP Internal Medicine Medical Oncology; Referring Provider Internal Medicine; Visit Provider Otolaryngology
DX: E04.2 Nontoxic multinodular goiter (principal)
CPT/HCPCS: 76536

== ENCOUNTER → 2023-07-30 09:05 | Outpatient (CLI) | payer MEDICARE, OTHER, SELFPAY ==
--- NOTE | ~2023-07-30 | CT_ITS ---
Clinical Indication: Lymphoma restaging CT Scan of the Chest, Abdomen, and Pelvis with Contrast: Technique: Contiguous sections were acquired throughout the chest, abdomen, and pelvis after intraven ous administration of 100 cc of Omnipaque 350. Dose reduction technique was used on this scan by wilfredo verdugo automated exposure control and iterative reconstruction technique. The dose-length product (DL P) was 623.91 mGy-cm. COMPARISON: 01/29/2023 Findings: There is no evidence of any significant mediastinal, hilar or axillary lymphadenopathy. The mediastin al soft tissues and vascular structures appear normal. There is no evidence of pleural or pericardial effusion. Stable 7 mm irregular nodule at the right lower lobe. Stable right upper lobe scarring. Stable tiny probable hepatic cysts. Small layering gallstones are present. The spleen, pancreas, adre nals and kidneys are within normal limits. There are atherosclerotic calcifications of the aorta. No lymphadenopathy. No bowel obstruction or bowel wall thickening. There is no evidence to suggest acute appendicitis. Urinary bladder is unremarkable. No pelvic mass. No ascites. Impression: No evidence for active malignancy or metastatic disease. No lymphadenopathy. Stable 7 mm right basilar pulmonary nodule. Cholelithiasis. Reviewed, dictated and finalized at [facility]. IER GENERAL Impression: No evidence for active malignancy or metastatic disease. No lymphadenopathy. Stable 7 mm right basilar pulmonary nodule. Cholelithiasis.
[2023-07-30 09:25] LABS: Estimated Glomerular Filt Rate > 60
== END ==
PROVIDERS: PCP Internal Medicine; Visit Provider Internal Medicine Medical Oncology
DX: C82.18 Follicular lymphoma grade II, lymph nodes of multiple sites (principal); R91.1 Solitary pulmonary nodule; K80.20 Calculus of gallbladder without cholecystitis without obstruction
CPT/HCPCS: 71260; 74177; Q9967

== ENCOUNTER → 2023-11-01 09:07 | Outpatient (CLI) | payer MEDICARE, OTHER, SELFPAY ==
--- NOTE | ~2023-11-01 | CT_ITS ---
EXAMINATION: CT chest abdomen pelvis w con DATE: 11/01/2023 09:36 INDICATION: Follicular lymphoma grade 2 TECHNIQUE: Transaxial computed tomographic images of the chest, abdomen, and pelvis were obtained aft er the administration of 100 cc of Omnipaque 350 intravenous contrast. The dose-length product (DLP) was 614.45 mGy-cm. Automated exposure control and iterative reconstruction technique were employed. COMPARISON: 07/30/2023 FINDINGS: CHEST CT: There is a surgical staple line of the right upper lobe. The lungs are free of acute opacities. No pl eural effusion or pneumothorax. No pathologically enlarged thoracic lymph nodes are identified. The h eart size is normal. Calcified coronary artery atherosclerosis is noted. A 5 mm nodule of the right l ower lobe demonstrates slight decrease in size, likely infection/inflammation. ABDOMEN/PELVIS CT: There is a small sliding hiatal hernia. There are also small bilateral posterior diaphragmatic hernia s containing fat. Cysts of the liver measure up to 6 mm in the right hepatic lobe. The spleen, pancre as, and adrenal glands are normal. Stones are present in the nondistended gallbladder. Hypoattenuatin g lesions in the kidneys, measuring up to 6 mm on the right, are too small to characterize but likely represent cysts. There is scarring in the left kidney upper pole. No pathologically enlarged abdomin al or pelvic lymph nodes are identified. There is calcified atherosclerosis of the aorta and many of the other arteries. No free intraperitoneal gas or evidence of bowel obstruction. A moderate volume o f colonic stool is present. There is severe lumbar spondylosis at L5-S1. IMPRESSION: 1. No lymphadenopathy of the chest, abdomen, or pelvis. 2. Cholelithiasis without evidence of cholecystitis. Reviewed, dictated and finalized at location B. ROPOLOGIST PHYSICAL
[2023-11-01 09:26] LABS: Estimated Glomerular Filt Rate > 60
== END ==
PROVIDERS: PCP Internal Medicine Medical Oncology; Visit Provider Internal Medicine Medical Oncology
DX: C82.18 Follicular lymphoma grade II, lymph nodes of multiple sites (principal); K80.20 Calculus of gallbladder without cholecystitis without obstruction
CPT/HCPCS: 71260; 74177; Q9967

== ENCOUNTER 2024-03-03 09:08 | Outpatient (CLI) | payer MEDICARE, OTHER, SELFPAY ==
--- NOTE | ~2024-03-03 | CT_ITS ---
Clinical Indication: Lymphoma CT Scan of the Chest, Abdomen, and Pelvis with Contrast: Technique: Contiguous sections were acquired throughout the chest, abdomen, and pelvis after intraven ous administration of 100 cc of Omnipaque 350. Dose reduction technique was used on this scan by wilfredo verdugo automated exposure control and iterative reconstruction technique. The dose-length product (DL P) was 505.30 mGy-cm. COMPARISON: 11/01/2023 Findings: There is no evidence of any significant mediastinal, hilar or axillary lymphadenopathy. The mediastin al soft tissues and vascular structures appear normal. There is no evidence of pleural or pericardial effusion. Stable linear scarring in the right upper lobe region. Stable focal nodular scarring at the right yu g base anteriorly. The liver, spleen, pancreas, adrenals and kidneys are within normal limits. Small gallstones present. There are atherosclerotic calcifications of the aorta. No lymphadenopathy. No bowel obstruction or bowel wall thickening. There is no evidence to suggest acute appendicitis. Urinary bladder is unremarkable. No pelvic mass seen. No ascites. Impression: No lymphadenopathy evident. Cholelithiasis. Chronic areas of scarring in the lungs, as above. Reviewed, dictated and finalized at location . Impression: No lymphadenopathy evident. Cholelithiasis. Chronic areas of scarring in the lungs, as above.
[2024-03-03 09:32] LABS: Estimated Glomerular Filt Rate 54
== END 2024-03-03 09:09 ==
PROVIDERS: PCP Family Medicine; Visit Provider Internal Medicine Medical Oncology
DX: C82.18 Follicular lymphoma grade II, lymph nodes of multiple sites (principal); K80.20 Calculus of gallbladder without cholecystitis without obstruction
CPT/HCPCS: 71260; 74177; Q9967

== ENCOUNTER 2024-03-03 09:13 | Outpatient (CLI) | payer MEDICARE, OTHER, SELFPAY ==
--- NOTE | ~2024-03-03 | US_ITS ---
EXAMINATION: US thyroid DATE: 03/03/2024 09:56 INDICATION: Nontoxic multinodular goiter. TECHNIQUE: Multiple ultrasound images of the thyroid were obtained. COMPARISON: Ultrasound 02/23/2023, 02/20/2022 FINDINGS: The right thyroid lobe measures 4.8 x 1.6 x 1.8 cm. The left thyroid lobe measures 4.0 x 1.5 x 1.5 c m. There are multiple subcentimeter nodules in the thyroid. In the right thyroid lobe, there is an 1 8 mm solid, hypoechoic, wider than tall nodule with irregular margin without echogenic foci (TI-RADS TR4), stable from 02/20/2022 when biopsy was benign. IMPRESSION: 1. Multinodular goiter, likely not clinically significant. No follow-up is needed. Reviewed, dictated and finalized at location A. IMPRESSION: 1. Multinodular goiter, likely not clinically significant. No follow-up is need ed.
== END 2024-03-03 09:14 ==
PROVIDERS: PCP Family Medicine; Visit Provider Otolaryngology
DX: E04.2 Nontoxic multinodular goiter (principal)
CPT/HCPCS: 76536

== ENCOUNTER 2024-03-22 14:50 | Outpatient (CLI) | payer MEDICARE, OTHER, SELFPAY ==
--- NOTE | ~2024-03-22 | MM_ITS ---
EXAMINATION: MM screening [facility] BI w priscila HISTORY: Screening TECHNIQUE: Craniocaudal and mediolateral oblique 3-D tomosynthesis images were obtained and synthetic 2-D images were generated. CAD analysis was submitted and interpreted. COMPARISON: Comparison to multiple prior studies sequentially, with oldest reviewed study dated 07/01. BREAST PARENCHYMAL COMPOSITION: Not dense: There are scattered areas of fibroglandular density. FINDINGS: There is no evidence of suspicious mass, calcification, or architectural distortion to sugg est malignancy in either breast. There has been no suspicious interval change. IMPRESSION: 1. No mammographic evidence of malignancy. 2. Recommend routine screening mammography in one year. BI-RADS Category 1: Negative Reviewed, dictated and finalized at location B.
== END 2024-03-22 14:51 ==
LOC: MICIMG 14:51
PROVIDERS: PCP Family Medicine; Referring Provider Internal Medicine Medical Oncology; Visit Provider Nurse Practitioner Family
DX: Z12.31 Encounter for screening mammogram for malignant neoplasm of breast (principal)
CPT/HCPCS: 77063; 77067

== ENCOUNTER 2024-04-21 13:30 | Outpatient (RCR) | payer MEDICARE, OTHER, SELFPAY ==
--- NOTE | 2024-03-13 16:18 | OPREHPOC ---
Outpatient Therapy Plan of Care This is a Multidisciplinary Plan of Care that may contain components documented by all disciplines (PT, OT, and ST.) PT Problem 1 PT Problem #1 Knowledge Deficit PT Goal 1 Goal *indep with HEP * good safety with mobility Target Visit 8 PT Problem 2 PT Problem #2 Impaired Vestibular Syste PT Goal 1 Goal improve occulomotor system to decrease vestibular symptoms: pt perform 20 reps with good control in standin* eye tracking vertical 2*eye tracking horizontal 3* gaze stabilization with head motions vertical 4* gaze stabilization with head motions horizontal 5* good convergence of both eyes in standing 6* pt report head is NOT wozzy 7* further assessment of vestibular system as indicated with treatment progession. Target Visit 8
--- NOTE | 2024-03-13 16:18 | PTOPEVAL1 ---
Assessment and note entered by Miri Alejandro, PT Evaluation Information Diagnosis dizziness ICD-10 Condition Codes (PT) Dizziness & Giddiness R42 Onset December 2023 Subjective Information have chronic issues with dizziness; have been to the hospital several times due to it being so bad, have not been for few years; in remission from cancers, go to dr every 6 months for scan checks; family history of dizziness; have dizziness every 1-3 days, used to be less, about few times/year. have not had a room spinning really bad spell for few years; having problems with memory-- that is why seeing neurologist. have had 1 fall in the past 6 months- on step at front door; Symptoms: head wozzy; sometimes feel better in the morning and sometimes so bad stay in bed all day; sometimes stay in bed all day due to stomach pain; decrease symptoms: meclazine sometimes helps; sometimes better as the day goes on; increase symptoms: cannot identify anything; feel when get water in her ears, is dizzy the next day for sure; vision-- have glasses, but not always wear, see double; have new glasses; return to eye dr next month; hearing- bilateral hearing aides, have had them about 3-4 hours, cannot recall last hearing check date; have some buzzing in her ears, less since use of the hearing aides; see ENT: enlarged thyroid; see PRN; have seasonal allergies/ no sinus infections; Reported Pain Level Pain Score 0: Self Report Assessment PT Clinical Summary Shikha has the diagnosis of dizziness. Her vestibular history is vague and varies. She reports chronic issues with dizziness--room spinning and in bed for a week to head feels wozzie. Recently-- NO spinning incidents have occurred. She follows with ENT and neurologist recently for increased memory issues. Medical history: visu
--- NOTE | 2024-04-12 08:23 | PCPTNOTE ---
Pt canceled stating she did not feel well today.
--- NOTE | 2024-04-21 14:11 | PTOPDC ---
Assessment and note entered by Miri Alejandro, PT Discharge Report Assessment Status Discharge Diagnosis dizziness ICD-10 Condition Codes (PT) Dizziness & Giddiness R42 Onset December 2023 Subjective Information is doing well; head feeling OK today; yesterday worked out in the yard ~ 4 & 1/2 hours and pulled weeds & did OK; since coming for therapy, not have the head woozie feeling and only had 2 black out times- when stand up, everything dark for a few seconds; have good water intake; have BP cuff at home and will take it; Reported Pain Level Pain Score 0: Self Report Assessment PT Clinical Summary Shikha has received a total of 7 PT sessions. Compared to the initial evaluation: improvement with reported vestibular symptoms--no longer reports head feeling woozie ; improved eye tracking and gaze stabilization, but has decreased smoothness with eye tracking downward motion; on the R eye, she does not have convergence of the eye. With her BP, she has had decrease with initial standing position, compared to sitting. Education completed for safety training with mobility; instructed pt on HEP and to monitor her BP as needed, with position changes and vestibular symptoms. She continues to have issues with her eyes--double vision, decreased peripheral vision and has prism glasses. Some of her therapy sessions were performed without her glasses and she did better. She has an upcoming eye exam and glasses check. The goals were partially achieved. Discharge PT services. Plan of Care PT Services Indicated No
== END 2024-05-29 10:01 | disposition home or self-care (01) ==
LOC: ANHPT 13:30
PROVIDERS: PCP Family Medicine; Visit Provider Student in an Organized Health Care Education/Training Program
DX: R42 Dizziness and giddiness (principal)
CPT/HCPCS: 97110; 97112; 97162; 97530

== ENCOUNTER 2024-04-24 14:23 | Outpatient (CLI) | payer MEDICARE, OTHER, SELFPAY ==
--- NOTE | ~2024-04-24 | XR_ITS ---
XR abdomen/kub 1V 04/24/2024 14:38 INDICATION: Abdomen pain TECHNIQUE: KUB COMPARISON: None FINDINGS: Bowel gas pattern is normal. Large amount of retained fecal material in the colon. There is no evidence of free air, mass, organomegaly, ascites or obstruction. No abnormal calculi are seen. The bones appear intact. IMPRESSION: 1: Moderate retained fecal material in the colon. No obstruction. Reviewed, dictated and finalized at location B.
== END 2024-04-24 14:24 ==
PROVIDERS: PCP Internal Medicine Medical Oncology; Visit Provider Family Medicine
DX: R10.12 Left upper quadrant pain (principal); R10.32 Left lower quadrant pain
CPT/HCPCS: 74018

== ENCOUNTER 2024-07-19 11:47 | Outpatient (CLI) | payer MEDICARE, OTHER, SELFPAY ==
--- NOTE | ~2024-07-19 | DEXA_ITS ---
Bone Density Report Name: SAIRA VERA Age: 78 Sex: Female Ethnicity: White Date of : 1945 Indication: postmenopausal; screening for osteoporosis; height loss; Referring Provider: HUMBERTO SPARKS Study: Bone densitometry was performed. Exam Date: July 19, 2024 Accession number: [id number] Bone Density: Region BMD T-score Z-score Classification AP Spine(L1-L4) 0.915 -1.2 1.3 Osteopenia Femoral Neck (Left) 0.680 -1.5 0.6 Osteopenia Total Hip (Left) 0.904 -0.3 1.6 Normal Femoral Neck (Right) 0.651 -1.8 0.4 Osteopenia Total Hip (Right) 0.875 -0.6 1.3 Normal Total Hip Mean 0.889 -0.5 1.5 Normal World Health Organization criteria for BMD impression classify patients as: Normal (T-score at or above -1.0), Osteopenia (T-score between -1.0 and -2.5), or Osteoporosis (T-score at or below -2.5). 10-year Fracture Risk(1): Major Osteoporotic Fracture 13% Hip Fracture 3.1% Reported Risk Factors: [place] (), Neck BMD=0.651, BMI=24.4 (1) FRAX(R) Version 3.08. Fracture probability calculated for an untreated patient. Fracture probability may be lower if the patient has received treatment. Clinical Information Provided by Patient: Has used the following medications: Fosamax (i.e. alendronate), Vitamin D, Calcium Patient maximum height was 64.0 No regular weight bearing exercise Drinks caffeinated beverages Onset of menses at age 13 Number of children 1 Impression: The patient has low bone mass, based on the Right Femoral Neck T-score. The patient has an estimated ten-year risk of hip fracture of 3.1% and an estimated ten-year risk of major fracture of 13%, based on the WHO FRAX algorithm. Discussion: BONE DENSITY IS LOW AT ONE OR MORE SKELETAL SITES. THE PATIENT'S BMD AND CLINICAL RISK FACTORS CONTRIBUTE TO THIS PATIENT'S INCREASED RISK OF FRACTURE. This patient's lowest T-score is low at one or more skeletal sites. It meets the World Health Organization's (WHO) criteria for ?low bone mass? (T-score between -1.0 and -2.5). The patient's 10-year risk of hip fracture as calculated by FRAX exceeds the threshold where pharmacological therapy is recommended by the National Osteoporosis Foundation (NOF). However, all treatment decisions require clinical judgment and consideration of individual patient factors, including patient preferences, comorbidities, previous drug use, risk factors not captured in the FRAX model (e.g., frailty, falls, vitamin D deficiency, increased bone turnover, interval significant decline in bone density) and possible under or overestimation of fracture risk by FRAX. The patient should follow a healthful lifestyle (good nutrition with adequate calcium and vitamin D, and appropriate weight-bearing exercise). Follow-Up: Consider a repeat BMD and Vertebral Fracture Assessment (VFA) exam in 2 years or sooner if medically necessary, to reassess this patient's status. Reported by: DIANE on 07/19/2024 12:16:00 PM. Reviewed, dictated and finalized at location [facility]
== END 2024-07-19 11:48 | disposition home or self-care (01) ==
LOC: ANHIMG 11:48
PROVIDERS: PCP Family Medicine; Visit Provider Nurse Practitioner Family
DX: M85.89 Other specified disorders of bone density and structure, multiple sites (principal); M81.0 Age-related osteoporosis without current pathological fracture
CPT/HCPCS: 77080

== ENCOUNTER 2024-09-01 11:07 | Outpatient (CLI) | payer MEDICARE, OTHER, SELFPAY ==
--- NOTE | ~2024-09-01 | CT_ITS ---
Clinical Indication: Lymphoma CT Scan of the Chest, Abdomen, and Pelvis without Contrast: Technique: Contiguous sections were acquired throughout the chest, abdomen, and pelvis without IV con trast administration. Dose reduction technique was used on this scan by utilizing automated exposure control and iterative reconstruction technique. The dose-length product (DLP) was 612.81 mGy-cm. Comparison: 03/03/2024 Findings: There is no evidence of any significant mediastinal, hilar or axillary lymphadenopathy. The mediastin al soft tissues appear normal. There is no evidence of pleural or pericardial effusion. Stable right upper lobe scarring. Stable 5 mm right lower lobe pulmonary nodule (axial image 80). Lef t lung clear. The liver, spleen, pancreas, adrenals and kidneys are within normal limits. Multiple small calcified gallstones are present. No evidence of aortic aneurysm. No lymphadenopathy. No bowel obstruction or bowel wall thickening. Prominent stool suggests constipation. Urinary bladder is unremarkable. No pelvic mass seen. No ascites. Impression: No pathologic lymphadenopathy. Stable 5 mm right lower lobe pulmonary nodule. Cholelithiasis. Constipation. Reviewed, dictated and finalized at [facility]. [employer] Impression: No pathologic lymphadenopathy. Stable 5 mm right lower lobe pulmonary nodule. Cholelithiasis. Constipation.
== END 2024-09-01 11:08 | disposition home or self-care (01) ==
LOC: MICIMG 11:08
PROVIDERS: PCP Family Medicine; Visit Provider Internal Medicine Medical Oncology
DX: C82.90 Follicular lymphoma, unspecified, unspecified site (principal); R91.1 Solitary pulmonary nodule; K80.20 Calculus of gallbladder without cholecystitis without obstruction; K59.00 Constipation, unspecified
CPT/HCPCS: 71250; 74176

== ENCOUNTER 2024-11-24 12:30 | Outpatient (CLI) | payer MEDICARE, OTHER, SELFPAY ==
--- NOTE | ~2024-11-24 | MR_ITS ---
EXAMINATION: MR brain/brain stem wo/w con DATE: 11/24/2024 13:05 INDICATION: Mild cognitive impairment. TECHNIQUE: Magnetic resonance imaging (MRI) of the brain and brainstem was performed without and with 10 mL ProHance intravenous contrast. Sequences included sagittal and axial T1-weighted SE, axial dif fusion-weighted FS SE, , axial T2-weighted FLAIR, and axial T2-weighted FSE. Postcontrast axial and c oronal T1-weighted SE was obtained. Apparent diffusion coefficient (ADC) maps were created. COMPARISON: 11/13/2021 FINDINGS: There are no areas of restricted diffusion to suggest acute infarction. No intracranial hemorrhage or abnormal intracranial mass lesion. There are scattered areas of nonspecific increased T2-weighted si gnal intensity in the cerebral white matter, predominantly involving the deep and periventricular whi te matter which is within normal limits for age. There are no intraparenchymal signal abnormalities s een on the other pulse sequences. The ventricles are symmetric and normal in size. There are no abnor mal extra-axial fluid collections. Flow voids are seen in the cerebral arteries on the T2-weighted se quences consistent with their expected patency. Changes of bilateral intraocular lens replacement. Co ncha bullosa of the right middle turbinate. Mild mucosal thickening the ethmoid sinuses. There are no areas of abnormal enhancement on the post contrast images. IMPRESSION: 1. Normal aging brain with age-appropriate mild to moderate scattered white matter T2 hyperintensity consistent with chronic small vessel ischemic disease. No acute intracranial process or abnormally en hancing brain lesions. Reviewed, dictated and finalized at location B. IMPRESSION: 1. Normal aging brain with age-appropriate mild to moderate scattered white mat ter T2 hyperintensity consistent with chronic small vessel ischemic disease. No acute intracranial process or abnormally enhancing brain lesions.
== END 2024-11-24 12:31 | disposition home or self-care (01) ==
LOC: MICIMG 12:31
PROVIDERS: PCP Internal Medicine; Visit Provider Internal Medicine
DX: G31.84 Mild cognitive impairment of uncertain or unknown etiology (principal); Z85.72 Personal history of non-Hodgkin lymphomas
CPT/HCPCS: 70553; A9579

== ENCOUNTER 2025-03-26 13:06 | Outpatient (CLI) | payer MEDICARE, OTHER, SELFPAY ==
--- NOTE | ~2025-03-26 | CT_ITS ---
Clinical Indication: Lymphoma CT Scan of the Chest, Abdomen, and Pelvis without Contrast: Technique: Contiguous sections were acquired throughout the chest, abdomen, and pelvis without IV con trast administration. Dose reduction technique was used on this scan by utilizing automated exposure control and iterative reconstruction technique. The dose-length product (DLP) was 489.18 mGy-cm. Comparison: 09/01/2024 Findings: There is no evidence of any significant mediastinal, hilar or axillary lymphadenopathy. The mediastin al soft tissues appear normal. There is no evidence of pleural or pericardial effusion. Stable linear scarring and probable postoperative change in the right upper lobe. Stable 5 mm nodule in the right lower lobe (axial image 85). The liver, spleen, pancreas, adrenals and kidneys are within normal limits. Multiple small layering g allstones are present. No evidence of aortic aneurysm. No lymphadenopathy. No bowel obstruction or bowel wall thickening. There is no evidence to suggest acute appendicitis. Urinary bladder is unremarkable. No pelvic mass seen. No ascites. Impression: No pathologic lymphadenopathy. Stable 5 mm right lower lobe pulmonary nodule. Cholelithiasis. Reviewed, dictated and finalized at [facility]. Impression: No pathologic lymphadenopathy. Stable 5 mm right lower lobe pulmonary nodule. Cholelithiasis.
--- NOTE | ~2025-03-26 | MM_ITS ---
EXAMINATION: MM screening isamar BI w priscila HISTORY: Screening TECHNIQUE: Craniocaudal and mediolateral oblique 3-D tomosynthesis images were obtained and synthetic 2-D images were generated. CAD analysis was submitted and interpreted. COMPARISON: Comparison to multiple prior studies sequentially, with oldest reviewed study dated 09/2019. BREAST PARENCHYMAL COMPOSITION: Not dense: There are scattered areas of fibroglandular density. FINDINGS: There is no evidence of suspicious mass, calcification, or architectural distortion to sugg est malignancy in either breast. There has been no suspicious interval change. IMPRESSION: 1. No mammographic evidence of malignancy. 2. Recommend routine screening mammography in one year. BI-RADS Category 1: Negative Reviewed, dictated and finalized at location B.
== END 2025-03-26 13:07 | disposition home or self-care (01) ==
PROVIDERS: PCP Internal Medicine Medical Oncology; Visit Provider Internal Medicine Medical Oncology
DX: Z12.31 Encounter for screening mammogram for malignant neoplasm of breast (principal); C82.18 Follicular lymphoma grade II, lymph nodes of multiple sites
CPT/HCPCS: 71250; 74176; 77063; 77067